=== PATIENT | male | born 1940 | race Caucasian/White ===

== ENCOUNTER 2017-04-18 10:16 | Inpatient (IN) | payer MEDICARE, OTHER ==
[2017-04-18] VITALS (7 sets, daily range): BP systolic 107–138; BP diastolic 54–68; PULSE 78–90; RESP 20; Ht 165.1 cm; Wt 69.5 kg
[~2017-04-18] VITALS: Ht 165.1 cm; Wt 69.5 kg
[2017-04-18] MEDS ORDERED: NITROGLYCERIN 2% 1 GM OINT PKT TD STA (10:17)
[2017-04-18] MEDS ORDERED: NITROGLYCERIN (SL) 0.4 MG TAB SL PRN (10:30)
[2017-04-18 10:48] LABS: ADD SCAN DIFF NO
[2017-04-18 10:50] LABS: BASOPHIL # 0.1 10^3/ul (0.0-0.1); BASOPHILS % 0.4 % (0.0-2.0); HEMATOCRIT 30.9 % (42.0-52.0); HEMOGLOBIN 10.2 g/dl (14.0-18.0); LYMPHOCYTES % 5.8 % (15.0-51.0); MEAN CORPUSCULAR HEMOGLOBIN 30.4 pg (29.0-33.0); MEAN PLATELET VOLUME 9.3 fl (7.4-10.4); MONOCYTE # 1.3 10^3/ul (0.3-0.9); MONOCYTES % 7.3 % (0.0-11.0); NEUTROPHIL # 14.8 10^3/ul (1.6-7.5); NEUTROPHILS % 85.8 % (39.0-77.0); PLATELET COUNT 474 10^3/UL (140-415); RED BLOOD COUNT 3.36 10^6/ul (4.70-6.10); RED CELL DISTRIBUTION WIDTH 14.5 % (11.5-14.5); WHITE BLOOD COUNT 17.3 10^3/ul (4.8-10.8)
--- NOTE | 2017-04-18 10:50 | RADRPT ---
PROCEDURE: Chest x-ray CLINICAL INDICATION: Chest pain TECHNIQUE: Chest single view COMPARISON: None FINDINGS: The heart is normal in size. The pulmonary vessels are normal in caliber. The lungs are clear. Th e costophrenic angles are sharp. The visualized bony thorax is unremarkable. IMPRESSION: No acute cardiopulmonary disease. Moderate atherosclerotic aortic calcification RPTAT: HH .Lexa Mendez MD, Date Time Electronically viewed and signed by .Lexa Mendez MD, MD on 04/18/2017 10:50 .W/
--- NOTE | 2017-04-18 11:05 | RADRPT ---
PROCEDURE: CT Abdomen and Pelvis without contrast. CLINICAL INDICATION: Abdominal pain and distension. TECHNIQUE: CT scan of the abdomen and pelvis without contrast was performed on a multidetector hig h-resolution CT scanner. The patient was scanned without intravenous contrast. Coronal and sagittal reformatted images were obtained from the axial source images. Images were reviewed on a high-resol [employer] PACS workstation. The total exam CTDI equals 18.53 mGy and the total exam DLP equals 1119.62 m Gy-cm. One or more of the following dose reduction techniques were used: Automated exposure control. Adjustment of the mA and/or kV according to patient size. Use of iterative reconstruction technique. COMPARISON: None FINDINGS: CT abdomen: The lung bases are clear. The heart size is normal, without pericardial thickening or effusion. Th e liver is normal in size and density without focal mass or intrahepatic biliary dilatation. The sp milagros is normal in size and homogeneous in density. The stomach is partially collapsed, but is gross ly unremarkable. The pancreas as visualized is normal. The gallbladder is remarkable for sub centi meter layering gallstones. There is no evidence for biliary dilatation. The adrenal glands are symm etric and normal. There is moderate bilateral hydroureteronephrosis likely related to marked distension of the urinary bladder. There is no obstructing ureteral stone. There is lobulated contour of the left kidney wi th focal scarring in the lower pole. There is a punctate parenchymal calcification in the upper clifford e. The aorta is of normal caliber. Aortic vascular calcifications are present. There is no retroperit canela lymphadenopathy. The maegan hepatis region is clear. The bowel and mesentery, as visualized, are equally unremarkable. CT pelvis: The urinary bladder is markedly distended measures up to 27 x 18 cm (craniocaudal x AP). The patient is status post prostatectomy. There is evidence of implanted artificial urinary sphincter device. The small bowel loops situated within the pelvis are unremarkable. The pelvic sidewalls and inguina l regions are clear. The sigmoid colon and rectum are unremarkable. No mass, lymphadenopathy, or f ree fluid is seen. No acute inflammation is seen. The surrounding osseous structures are remarkabl e for degenerative spondylosis of the spine. No osteolytic or osteoblastic lesion is detected. IMPRESSION: 1. Markedly distended urinary bladder measures up to 27 cm in craniocaudal length. 2. Moderate bilateral hydroureteronephrosis likely related to distended urinary bladder. Lobulated contour of both kidneys with cortical scarring more evident in the lower pole left kidney. 3. Implanted artificial urinary sphincter device in place. 4. Cholelithiasis without evidence of acute cholecystitis. 5. Aortoiliac atherosclerosis. RPTAT: BB .Jovanny Nieto MD, MD Date Time Electronically viewed and signed by .Jovanny Nieto MD, on 04/18/2017 11:05 .O/
[2017-04-18 11:14] LABS: CALCIUM 9.6 mg/dl (8.4-10.2); CREATININE 2.15 mg/dl (0.61-1.24); POTASSIUM 5.7 mmol/L (3.5-5.1)
[2017-04-18 11:19] LABS: INR 2.18; PARTIAL THROMBOPLASTIN TIME 50.8 Sec (25.0-35.0); PROTIME 24.5 Sec (12.2-14.2); PT RATIO 1.9
[2017-04-18 11:26] LABS: TROPONIN-I 0.036 ng/ml (0.00-0.12)
[2017-04-18] MEDS ORDERED: SODIUM CHLORIDE 0.9% 1L BAG IV* STA (11:53)
[2017-04-18] MEDS ORDERED: PIPER-TAZO 3.375 GM IV (PMX) 100 ML IVPB ONE (12:00)
[2017-04-18 12:19] LABS: ADD UMIC YES; UR ASCORBIC ACID NEGATIVE (NEGATIVE); UR BACTERIA MANY /HPF (NONE SEEN); UR BILIRUBIN (Dip) NEGATIVE (NEGATIVE); UR BLOOD (Dip) 2+ mg/dL (NEGATIVE); UR CLARITY TURBID (CLEAR); UR COLOR AMBER (YELLOW); UR GLUCOSE (Dip) NEGATIVE (NEGATIVE); UR KETONES (Dip) NEGATIVE (NEGATIVE); UR LEUKOCYTE ESTERASE (Dip) 3+ Leu/ul (NEGATIVE); UR MUCUS FEW /HPF (NONE SEEN); UR NITRITE (Dip) NEGATIVE (NEGATIVE); UR RBC 48 /HPF (0-5); UR SPECIFIC GRAVITY (Dip) 1.012 (1.003-1.030); UR TOTAL PROTEIN (Dip) 1+ mg/dl (NEGATIVE); UR UROBILINOGEN (Dip) NEGATIVE (NEGATIVE); UR WBC CLUMPS MANY /HPF (NONE SEEN)
[2017-04-18] MEDS ORDERED: ONDANSETRON 4 MG INJ IV PRN ×2 (12:30→17:00)
[2017-04-18] MEDS ORDERED: ACETAMINOPHEN 325 MG TAB PO PRN ×2 (12:30→17:00)
--- NOTE | 2017-04-18 13:34 | ERA ---
ER Documentation Chief Complaint Date/Time DATE: 04/18/17 TIME: 13:31 Chief Complaint chest pain x 1 hr prior to arrival, abdominal pain today HPI Patient is a 76-year-old male with hypertension, diabetes, and coronary disease who presents with chest pain and abdominal pain. He was brought in by ambulance. He had 10 out of 10 chest pain and was given 3 nitroglycerin and 160 mg of aspirin by paramedics. He describes as a midepigastric pain which radiates to his left chest. He came from a rehab facility. He is also complaining of abdominal pain and has abdominal distention. He did have a bowel movement done yesterday. ROS All systems reviewed and are negative except as per history of present illness. Allergies Allergies: Coded Allergies: vancomycin (Verified Allergy, Severe, 04/18/17) Uncoded Allergies: CHICKEN (Allergy, Intermediate, 04/18/17) PMhx/Soc History of Surgery: No Anesthesia Reaction: No Hx Neurological Disorder: No Hx Respiratory Disorders: Yes (COPD) Hx Cardiac Disorders: Yes (HEART FAILURE, CAD, HTN) Hx Psychiatric Problems: Yes (PSYCHOSIS ) Hx Miscellaneous Medical Probl: Yes (DM, ANEMIA,GERD, PERIPHERAL VASCULAR DISEASE, L PATELLA FX) Hx Alcohol Use: No Hx Substance Use: No Hx Tobacco Use: No Smoking Status: Former smoker FmHx Family History: diabetes Physical Exam Vitals Vital Signs Date Time Temp Pulse Resp B/P Pulse Ox O2 Delivery O2 Flow Rate FiO2 04/18/17 10:24 98.4 103 20 146/66 99 Physical Exam Const: Moderate distress secondary to pain Head: Atraumatic Eyes: Normal Conjunctiva ENT: Normal External Ears, Nose and Mouth. Neck: Full range of motion..~ No meningismus. Resp: Clear to auscultation bilaterally Cardio: Regular rate and rhythm, no murmurs Abd: Distended abdomen with diffuse tenderness to palpation without rebound or guarding Skin: No petechiae or rashes Back: No midline or flank tenderness Ext: No cyanosis, or edema Neur: Awake and alert Psych: Normal Mood and Affect Result Diagram: 04/18/17 1039 04/18/17 1039 Results 24 hrs Laboratory Tests Test 04/18/17 10:39 04/18/17 11:40 White Blood Count 17.310^3/ul Red Blood Count 3.3610^6/ul Hemoglobin 10.2g/dl Hematocrit 30.9% Mean Corpuscular Volume 92.0fl Mean Corpuscular Hemoglobin 30.4pg Mean Corpuscular Hemoglobin Concent 33.0g/dl Red Cell Distribution Width 14.5% Platelet Count 90466^3/UL Mean Platelet Volume 9.3fl Neutrophils % 85.8% Lymphocytes % 5.8% Monocytes % 7.3% Eosinophils % 0.0% Basophils % 0.4% Nucleated Red Blood Cells % 0.0/100WBC Neutrophils # 14.810^3/ul Lymphocytes # 1.010^3/ul Monocytes # 1.310^3/ul Eosinophils # 0.010^3/ul Basophils # 0.110^3/ul Nucleated Red Blood Cells # 0.010^3/ul Differential Comment AUTO w/SCAN Prothrombin Time 24.5Sec Prothrombin Time Ratio 1.9 INR International Normalized Ratio 2.18 Activated Partial Thromboplast Time 50.8Sec Sodium Level 133mmol/L Potassium Level 5.7mmol/L Chloride Level 93mmol/L Carbon Dioxide Level 22mmol/L Anion Gap 24 Blood Urea Nitrogen 44mg/dl Creatinine 2.15mg/dl Glucose Level 210mg/dl Lactic Acid Level 2.6mmol/L Calcium Level 9.6mg/dl Troponin I 0.036ng/ml Urine Color JESSE Urine Clarity TURBID Urine pH 5.0 Urine Specific [place] 1.012 Urine Ketones NEGATIVEmg/dL Urine Nitrite NEGATIVEmg/dL Urine Bilirubin NEGATIVEmg/dL Urine Urobilinogen NEGATIVEmg/dL Urine Leukocyte Esterase 3+Yoel/ul Urine Microscopic RBC 48/HPF Urine Microscopic WBC > 182/HPF Urine Bacteria MANY/HPF Urine Mucus FEW/HPF Urine Hemoglobin 2+mg/dL Urine Glucose NEGATIVEmg/dL Urine Total Protein 1+mg/dl Current Medications Medications (Trade) Dose Ordered Sig/Jia Route PRN Reason Start Time Stop Time Status Last Admin Dose Admin Nitroglycerin (Nitroglycerin 2% Oint) 1 inch ONCE STAT TD 04/18/17 10:17 04/18/17 10:18 DC 04/18/17 11:00 Nitroglycerin (Nitroglycerin (Sl Tab) 0.4 Mg) 1 tab Q5M UP TO 3 DOSES PRN SL CHEST PAIN 04/18/17 10:30 Sodium Chloride 2750 ml 2,750 ml BOLUS OVER 2 HOURS STAT IV* 04/18/17 11:53 04/18/17 11:55 DC 04/18/17 12:13 Piperacillin Sod/ Tazobactam Sod (Zosyn 3.375gm/ 100 ml (Pmx)) 100 ml @ 200 mls/hr ONCE ONCE IVPB 04/18/17 12:00 04/18/17 12:29 DC 04/18/17 12:13 Procedures/MDM CT scan shows distended bladder per radiology. Chest x-ray shows no pneumonia or pneumothorax per radiology. EKG read by me: Rate/Rhythm: Regular rate and rhythm at a normal rate Intervals: Normal Impression: No evidence of ischemia or arrhythmia Admit MDM: Patient's infectious symptoms have not stabilized and the patient is at risk of rapid decompensation. The patient will be admitted for careful hydration, antibiotic therapy, and infectious source control. Severe Sepsis criteria: Infectious source: Cystitis End organ damage indicated by: Lactate greater than 2, creatinine greater than 2 Sepsis Management: Time of recognition of sepsis: 10:39 Within 3 hours of recognition: Blood cultures x 2 before broad-spectrum antibiotics: [Yes] 30 ml/kg NS bolus [Completed] Initial lactate 2.6 Repeat lactate pending Time of recognition of septic shock: [No septic shock] Septic Shock Assessment: Any lactic acid > 4.0 [No] Persistent hypotension (SBP < 90 or 40 mmHg drop, MAP < 65) despite 30 mL/kg IV fluid bolus [No] Volume Re-assessment for Septic Shock (post 30 ml/kg bolus): No septic shock at this time Persistent Hypotension Treatment: Comfort care [No] Central line [Not Required] Vasopressor started [Not required] I considered further perfusion assessment with CVP measurement, SCVO2, bedside ultrasound volume assessment, passive leg raise, trial of further fluid bolus. And proceeded with [30 ml/kg fluid bolus of NSS, broad spectrum antibiotics, and admission.] Cha catheter need to be placed and there was 2900 mL of urine which was obtained. Accepting Care Team Current data and ongoing care discussed. Admitting Physician: Dr. Ruiz from the panel team Retail Store Manager(s): [None] Outstanding Data: Culture results and repeat lactic acid Critical Care: Critical care time [35] minutes excluding all billable procedures Emergent fluid management while maintaining close respiratory support. Provision of immediate and broad-spectrum antibiotic therapy. Simultaneous assessment for possible sources in order to direct targeted therapy. Consideration for invasive and chemical support to prevent cardiopulmonary collapse. Departure Diagnosis: Primary Impression: Severe sepsis Additional Impressions: Chest pain Qualified Code: R07.9 - Chest pain, unspecified type Cystitis Condition: Serious MADELAINE YOUNG MD Apr 18, 2017 13:33
[2017-04-18] MEDS ORDERED: PENDING SANTYL ORDER FOR WOUND CARE XX PRN (16:00)
[2017-04-18 16:11] LABS: CREATINE KINASE < 20 IU/L (23-200)
[2017-04-18 16:17] LABS: TROPONIN-I 0.026 ng/ml (0.00-0.12)
[2017-04-18 16:18] LABS: CK-MB 1.36 ng/ml (0.0-2.4)
--- NOTE | 2017-04-18 16:47 | HP ---
Date/Time of Note Date/Time of Note DATE: 04/18/17 TIME: 16:39 Assessment/Plan VTE Prophylaxis VTE Prophylaxis Intervention: SCD's Lines/Catheters IV [facility]from [facility] Saline [facility] Assessment/Plan Chief Complaint/Hosp Course 1. Abdominal pain likely secondary to urinary retention positive from neurogenic bladder Patient has history of implantable device in the testicle Consult urology 2. Left foot wound Consult wound care 3. Acute versus chronic kidney disease-baseline creatinine unknown etiology likely obstructive secondary to neurogenic bladder Nephrology consultation 4. History of polio with debility 5. Leukocytosis secondary to UTI from neurogenic bladder Rocephin IV Urine culture 6. Normocytic anemia likely secondary to anemia of chronic disease Prophylaxis: SCDs Problems: HPI/ROS Admit Date/Time Admit Date/Time Apr 18, 2017 at 12:21 Hx of Present Illness Patient is 76-year-old male with a history of polio, history of urinary issues with mechanical device to help him urinate, patient was born with 1 kidney. Patient appears to be mostly bedbound he states that he does get around with wheelchair and does occasionally ambulate with assistance. Patient states that he lives with his . Patient presents with chief complaint of pain in the foot but he told the ER doctor that he has chest pain. Patient denies any chest pain at this time he does report some suprapubic pain. Patient states that he needs to turn on the apparatus in his testicles to allow him to urinate but he has not done so today. Patient is unclear as to why this device was placed. Patient has no other complaints this time. ROS Constitutional: improved, no complaints Eyes: no complaints ENT: no complaints Respiratory: no complaints Cardiovascular: no complaints Gastrointestinal: pain Genitourinary: no complaints Musculoskeletal: bone/joint pain Skin: no complaints Neurologic: no complaints Endocrine: no complaints Lymphatic: no complaints Psychological: nl mood/affect, no complaints Immunologic: no complaints PMH/Family/Social Past Medical History Medical History: other (Polio and urinary retention) Past Surgical History History of bilateral knee replacement and hip replacement as well as mechanical device placed in testicles for urinary retention Past Surgical Hx: other Family History Significant Family History: no pertinent family hx Social History Alcohol Use: none Smoking Status: Current every day smoker Drug Use: none Exam/Review of Systems Vital Signs Vitals Vital Signs Date Time Temp Pulse Resp B/P Pulse Ox O2 Delivery O2 Flow Rate FiO2 7/5/17 16:12 83 04/18/17 15:58 97.7 20 116/62 96 04/18/17 14:00 Nasal Cannula 1.0 Exam Constitutional: alert Head: normocephalic Respiratory: clear to auscultation Cardiovascular: regular rate and rhythm Gastrointestinal: non-tender, soft, No distended Musculoskeletal: No nl extremities to inspection Labs Result Diagram: 04/18/17 1039 04/18/17 1039 Medications Medications Current Medications Miscellaneous Information (Pending [facility] Order For Wound Care) This patient caro... PRN PRN XX WOUND CARE; Start 04/18/17 at 16:00 BANDAR RUTHERFORD Apr 18, 2017 16:47
[2017-04-18] MEDS ORDERED: DOCUSATE SODIUM 100 MG CAP PO PRN (17:00)
[2017-04-18] MEDS ORDERED: NACL 0.9% 3 ML SYG IV SCH (17:00)
[2017-04-18] MEDS ORDERED: ZOLPIDEM 5 MG TAB PO PRN (17:00)
[2017-04-18] MEDS ORDERED: CEFTRIAXONE 1 GM/50 ML (PMX) 50 ML IVPB SCH (17:00)
--- NOTE | 2017-04-18 19:23 | CONS ---
Date/Time of Note Date/Time of Note DATE: 04/18/17 TIME: 19:03 Assessment/Plan Assessment/Plan Chief Complaint/Hosp Course Urinary retention secondary to the fact that the patient has not deflated the cuff of the artificial sphincter for many days causing him to go into urinary retention. The tells me that he usually have to sit on the toilet to be able to do that he cannot do it laying down or urinate in the urinal. Recommendation at the present time would be to keep the Cha catheter in place and once he is stable we will remove the catheter and have him resume using his artificial sphincter and have him sit on the bedside commode to be able to deflate the cuff so he could urinate Problems: Consultation Date/Type/Reason Admit Date/Time Apr 18, 2017 at 12:21 Date of Consultation: Apr 18, 2017 Reason for Consultation Urinary retention Referring Provider: BANDAR RUTHERFORD Hx of Present Illness 76-year-old male presented to the emergency room with abdominal pain ,chest pain ,was found to have urinary retention. Subjective hx not possible: other (Patient stated that he is comfortable at the present time and has no pain) Constitutional: improved, no complaints, No chills, No diaphoresis, No disoriented, No febrile, No other, No poor po, No requiring IVF, No requiring O2 Eyes: no complaints ENT: no complaints Respiratory: no complaints, other (Patient did have a pulmonary embolism when he was at [facility] last month) Cardiovascular: no complaints, other Gastrointestinal: other (Loose bowel movement), pain Genitourinary: no complaints, other (Urinary retention) Musculoskeletal: bone/joint pain Skin: no complaints, skin lesions Neurologic: no complaints Endocrine: no complaints Lymphatic: no complaints Psychological: nl mood/affect, no complaints Immunologic: no complaints Past Medical History Medical History: other (Polio and urinary retention, history of pulmonary embolism and nose bleed because of low platelet count) Past Surgical History Past Surgical Hx: other (History of artificial urinary sphincter placed about 20 years ago. Patient still have mild urinary incontinence) Family History Significant Family History: no pertinent family hx Social History Alcohol Use: none Smoking Status: Current every day smoker Drug Use: none Other Social History Patient lives at home with his however he was recently admitted to [facility] by Dr. colby to undergo surgery on his knee which he did then he was transferred to [facility] for rehabilitation and while he was there the had the pulmonary embolism and the nose bleed Exam/Review of Systems Vital Signs Vitals Vital Signs Date Time Temp Pulse Resp B/P Pulse Ox O2 Delivery O2 Flow Rate FiO2 04/18/17 16:12 83 04/18/17 15:58 97.7 20 116/62 96 04/18/17 14:00 Nasal Cannula 1.0 Exam Constitutional: alert Psych: no complaints Head: normocephalic Eyes: nl conjunctiva ENMT: nl external ears & nose Neck: supple Respiratory: clear to auscultation, normal air movement Cardiovascular: nl pulses, regular rate and rhythm Gastrointestinal: nl liver, spleen, non-tender, soft Genitourinary - Male: other (Patient has the indwelling Cha catheter now draining clear urine. The pump for the artificial sphincter is in the right scrotal area. Rectal examination: Prostate is not large and it is soft) Musculoskeletal: other (Patient has cellulitis of the lower extremities) Skin: nl turgor Results Result Diagram: 04/18/17 1039 04/18/17 1039 Results 24 hrs Laboratory Tests Test 04/18/17 10:39 04/18/17 11:40 04/18/17 12:00 04/18/17 15:30 White Blood Count 17.3 H Red Blood Count 3.36 L Hemoglobin 10.2 L Hematocrit 30.9 L Mean Corpuscular Volume 92.0 Mean Corpuscular Hemoglobin 30.4 Mean Corpuscular Hemoglobin Concent 33.0 Red Cell Distribution Width 14.5 Platelet Count 474 H Mean Platelet Volume 9.3 Neutrophils % 85.8 H Lymphocytes % 5.8 L Monocytes % 7.3 Eosinophils % 0.0 Basophils % 0.4 Nucleated Red Blood Cells % 0.0 Neutrophils # 14.8 H Lymphocytes # 1.0 Monocytes # 1.3 H Eosinophils # 0.0 Basophils # 0.1 Nucleated Red Blood Cells # 0.0 Differential Comment AUTO w/SCAN Prothrombin Time 24.5 H Prothrombin Time Ratio 1.9 INR International Normalized Ratio 2.18 Activated Partial Thromboplast Time 50.8 H Sodium Level 133 L Potassium Level 5.7 H Chloride Level 93 L Carbon Dioxide Level 22 Anion Gap 24 H Blood Urea Nitrogen 44 H Creatinine 2.15 H Glucose Level 210 Lactic Acid Level 2.6 H 1.6 1.7 Calcium Level 9.6 Troponin I 0.036 0.026 Urine Color JESSE Urine Clarity TURBID A Urine pH 5.0 Urine Specific [place] 1.012 Urine Ketones NEGATIVE Urine Nitrite NEGATIVE Urine Bilirubin NEGATIVE Urine Urobilinogen NEGATIVE Urine Leukocyte Esterase 3+ H Urine Microscopic RBC 48 H Urine Microscopic WBC > 182 H Urine Bacteria MANY A Urine Mucus FEW A Urine Hemoglobin 2+ H Urine Glucose NEGATIVE Urine Total Protein 1+ H Creatine Kinase < 20 L Creatine Kinase Index Creatinine Kinase MB (Mass) 1.36 Medications Medications Current Medications Miscellaneous Information (Pending [facility] Order For Wound Care) This patient caro... PRN PRN XX WOUND CARE; Start 04/18/17 at 16:00 Ondansetron HCl (Zofran Inj) 4 mg Q6H PRN IV NAUSEA AND/OR VOMITING; Start 04/18 at 17:00 Acetaminophen (Tylenol Tab) 650 mg Q6H PRN PO PAIN LEVEL 1-3 OR FEVER; Start at 17:00 Acetaminophen/ Hydrocodone Bitart ([place] (5/325)) 1 tab Q6H PRN PO MODERATE PAIN LEVEL 4-6; Start 04/18/17 at 17:00 Morphine Sulfate (morphine) 2 mg Q4H PRN IV SEVERE PAIN LEVEL 7-10; Start at 17:00 Docusate Sodium (Colace) 100 mg Q12H PRN PO CONSTIPATION; Start 04/18/17 at 17: 00 Zolpidem Tartrate 5 mg 5 mg QHS PRN PO SLEEP; Start 04/18/17 at 17:00 Ceftriaxone Sodium (Rocephin) 50 ml @ 100 mls/hr Q24H IVPB ; Start 04/18/17 at 18:30 FADI ALCALA MD Apr 18, 2017 19:14
--- NOTE | 2017-04-18 20:04 | CONS ---
Date/Time of Note Date/Time of Note DATE: 04/18/17 TIME: 19:49 Assessment/Plan Assessment/Plan Chief Complaint/Hosp Course Impression: 1. Acute renal failure due to obstructive uropathy. The patient's urinary bladder was massively distended. It is not clear how long the patient has had an obstructed urethra due to an artificial sphincter which has not been used. The patient gives a history of having only one functioning kidney; although, he does show bilateral hydronephrosis on CAT scan done this morning which would be more consistent with 2 functioning kidneys. The patient has had more than 5 L of fluid drained from his urinary bladder. I would expect his renal function to improve. Will have to monitor renal function and urine output as the patient may develop a postobstructive diuresis. 2. Hyperkalemia secondary to number 1 . This should correct with relief of his obstructive uropathy. 3. Anemia 4. History of polio 5. Leukocytosis. Plan: 1. Start IV fluids in anticipation of postobstructive diuresis 2. Monitor daily renal function, electrolytes. 3. I will follow patient along with you. Problems: Consultation Date/Type/Reason Admit Date/Time Apr 18, 2017 at 12:21 Date of Consultation: Apr 18, 2017 Type of Consultation: Renal Reason for Consultation renal failure Referring Provider: BANDAR RUTHERFORD of Present Illness This is a 76-year-old man who I was asked to see because of renal failure. The patient is a poor historian. According to the chart and according to history I was able to obtain from other doctors the patient was admitted to the hospital this morning. He had been transferred by paramedics from [facility] to the emergency room. The patient was admitted because of chest pain. In the emergency room the patient was found to have a markedly distended urinary bladder with bilateral hydronephrosis. The patient is now feeling well after having a urinary catheter placed in the emergency room and at least 5 L were drained from his urinary bladder. It is suspected that the patient had chest pain from the urinary bladder pressing up on his diaphragm. The patient gives a history of only having one functioning kidney; however, on the CAT scan done today he does have what looks like to functioning kidneys. 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 The reason for its placement is not entirely clear. The patient was able to operate the artificial urinary sphincter by deflating a cough around his urethra. The patient however while at the skilled nursing was not doing the deflation of the cuff and developed the distended urinary bladder because he was not urinating. Constitutional: improved, no complaints, No chills, No diaphoresis, No disoriented, No febrile, No other, No poor po, No requiring IVF, No requiring O2 Eyes: no complaints ENT: no complaints Respiratory: no complaints, other (Patient did have a pulmonary embolism when he was at [facility] last month) Cardiovascular: no complaints, other Gastrointestinal: other (Loose bowel movement), pain Genitourinary: no complaints, other (Urinary retention) Musculoskeletal: bone/joint pain Skin: no complaints, skin lesions Neurologic: confusion Endocrine: no complaints Lymphatic: no complaints Psychological: no complaints Immunologic: no complaints Past Medical History Medical History: other (Polio and urinary retention, history of pulmonary embolism and nose bleed because of low platelet count) Past Surgical History The patient does have a history of polio. He also has a history of falling several times" fracturing his knees" and required bilateral total knee replacement. There is also a history of having blood clots in the lungs. The patient was on blood thinners but is not on blood thinners now. Some of this history was taken from the patient's . The patient is not clear on these details and he prefers to talking to his about this. Past Surgical Hx: other (History of artificial urinary sphincter placed about 20 years ago. Patient still have mild urinary incontinence) Family History Significant Family History: no pertinent family hx Social History Alcohol Use: none Smoking Status: Current every day smoker Drug Use: none Exam/Review of Systems Vital Signs Vitals Vital Signs Date Time Temp Pulse Resp B/P Pulse Ox O2 Delivery O2 Flow Rate FiO2 04/18/17 16:12 83 04/18/17 15:58 97.7 20 116/62 96 04/18/17 14:00 Nasal Cannula 1.0 Exam Constitutional: alert, frail Psych: confusion Head: normocephalic Eyes: EOMI Neck: supple Respiratory: clear to auscultation, diminished breath sounds Cardiovascular: regular rate and rhythm Gastrointestinal: non-tender, soft Musculoskeletal: nl extremities to inspection Neurological: focal weakness Results Result Diagram: 04/18/17 1039 04/18/17 1039 Results 24 hrs Laboratory Tests Test 04/18/17 10:39 04/18/17 11:40 04/18/17 12:00 04/18/17 15:30 White Blood Count 17.3 H Red Blood Count 3.36 L Hemoglobin 10.2 L Hematocrit 30.9 L Mean Corpuscular Volume 92.0 Mean Corpuscular Hemoglobin 30.4 Mean Corpuscular Hemoglobin Concent 33.0 Red Cell Distribution Width 14.5 Platelet Count 474 H Mean Platelet Volume 9.3 Neutrophils % 85.8 H Lymphocytes % 5.8 L Monocytes % 7.3 Eosinophils % 0.0 Basophils % 0.4 Nucleated Red Blood Cells % 0.0 Neutrophils # 14.8 H Lymphocytes # 1.0 Monocytes # 1.3 H Eosinophils # 0.0 Basophils # 0.1 Nucleated Red Blood Cells # 0.0 Differential Comment AUTO w/SCAN Prothrombin Time 24.5 H Prothrombin Time Ratio 1.9 INR International Normalized Ratio 2.18 Activated Partial Thromboplast Time 50.8 H Sodium Level 133 L Potassium Level 5.7 H Chloride Level 93 L Carbon Dioxide Level 22 Anion Gap 24 H Blood Urea Nitrogen 44 H Creatinine 2.15 H Glucose Level 210 Lactic Acid Level 2.6 H 1.6 1.7 Calcium Level 9.6 Troponin I 0.036 0.026 Urine Color JESSE Urine Clarity TURBID A Urine pH 5.0 Urine Specific Barry 1.012 Urine Ketones NEGATIVE Urine Nitrite NEGATIVE Urine Bilirubin NEGATIVE Urine Urobilinogen NEGATIVE Urine Leukocyte Esterase 3+ H Urine Microscopic RBC 48 H Urine Microscopic WBC > 182 H Urine Bacteria MANY A Urine Mucus FEW A Urine Hemoglobin 2+ H Urine Glucose NEGATIVE Urine Total Protein 1+ H Creatine Kinase < 20 L Creatine Kinase Index Creatinine Kinase MB (Mass) 1.36 Medications Medications Current Medications Miscellaneous Information (Pending Santyl Order For Wound Care) This patient caro... PRN PRN XX WOUND CARE; Start 04/18/17 at 16:00 Ondansetron HCl (Zofran Inj) 4 mg Q6H PRN IV NAUSEA AND/OR VOMITING; Start 04/18 at 17:00 Acetaminophen (Tylenol Tab) 650 mg Q6H PRN PO PAIN LEVEL 1-3 OR FEVER; Start at 17:00 Acetaminophen/ Hydrocodone Bitart ([place] (5/325)) 1 tab Q6H PRN PO MODERATE PAIN LEVEL 4-6; Start 04/18/17 at 17:00 Morphine Sulfate (morphine) 2 mg Q4H PRN IV SEVERE PAIN LEVEL 7-10; Start at 17:00 Docusate Sodium (Colace) 100 mg Q12H PRN PO CONSTIPATION; Start 04/18/17 at 17: 00 Zolpidem Tartrate 5 mg 5 mg QHS PRN PO SLEEP; Start 04/18/17 at 17:00 Ceftriaxone Sodium (Rocephin) 50 ml @ 100 mls/hr Q24H IVPB ; Start 04/18/17 at 18:30 TAO BOLTON MD Apr 18, 2017 20:02
[2017-04-18] MEDS: SOD CHLORIDE 0.9% 1,000 ML IV SCH (21:11)
[2017-04-18] MEDS: CEFTRIAXONE 1 GM/50 ML (PMX) 50 ML IVPB SCH (21:17)
[2017-04-18] MEDS: morphine 2 MG INJ IV PRN (21:20)
[2017-04-18 23:30] LABS: CREATINE KINASE < 20 IU/L (23-200)
[2017-04-18 23:40] LABS: CK-MB 1.47 ng/ml (0.0-2.4)
[2017-04-19] VITALS (12 sets, daily range): BP systolic 140–167; BP diastolic 65–79; PULSE 87–104; RESP 16–20
[2017-04-19] MEDS: SOD CHLORIDE 0.9% 1,000 ML IV SCH ×3 (04:30→20:30)
[2017-04-19 06:54] LABS: ADD SCAN DIFF NO
[2017-04-19 07:01] LABS: BASOPHILS % 0.4 % (0.0-2.0); EOSINOPHILS # 0.1 10^3/ul (0.0-0.5); EOSINOPHILS % 0.6 % (0.0-7.0); HEMATOCRIT 25.7 % (42.0-52.0); HEMOGLOBIN 8.2 g/dl (14.0-18.0); LYMPHOCYTES # 0.8 10^3/ul (0.8-2.9); LYMPHOCYTES % 9.7 % (15.0-51.0); MEAN CORPUSCULAR HEMOGLOBIN 29.8 pg (29.0-33.0); MEAN CORPUSCULAR HGB CONC 31.9 g/dl (32.0-37.0); MEAN CORPUSCULAR VOLUME 93.5 fl (82.0-101.0); MEAN PLATELET VOLUME 9.5 fl (7.4-10.4); MONOCYTE # 0.6 10^3/ul (0.3-0.9); MONOCYTES % 7.3 % (0.0-11.0); NEUTROPHIL # 6.8 10^3/ul (1.6-7.5); NEUTROPHILS % 81.3 % (39.0-77.0); PLATELET COUNT 354 10^3/UL (140-415); RED BLOOD COUNT 2.75 10^6/ul (4.70-6.10); RED CELL DISTRIBUTION WIDTH 14.7 % (11.5-14.5); WHITE BLOOD COUNT 8.3 10^3/ul (4.8-10.8)
[2017-04-19 07:24] LABS: CALCIUM 8.3 mg/dl (8.4-10.2); CREATININE 1.24 mg/dl (0.61-1.24); MAGNESIUM 1.5 mg/dl (1.7-2.5); PHOSPHORUS 4.3 mg/dl (2.5-4.9); POTASSIUM 3.9 mmol/L (3.5-5.1)
[2017-04-19] MEDS: HYDROCODONE/APAP (5/325) TAB PO PRN ×2 (07:47→13:44)
--- NOTE | 2017-04-19 08:46 | PN ---
Date/Time of Note Date/Time of Note DATE: 04/19/17 TIME: 08:39 Assessment/Plan VTE Prophylaxis VTE Prophylaxis Intervention: SCD's Lines/Catheters IV Catheter Type (from Rust): Saline Lock Urinary Cath still in place: Yes Reason Cath still needed: urinary retention Assessment/Plan Chief Complaint/Hosp Course Urinary retention secondary to the fact that the patient has not deflated the cuff of the artificial sphincter for many days causing him to go into urinary retention. The tells me that he usually have to sit on the toilet to be able to do that he cannot do it laying down or urinate in the urinal. Recommendation at the present time would be to keep the Cha catheter in place and once he is stable we will remove the catheter and have him resume using his artificial sphincter and have him sit on the bedside commode to be able to deflate the cuff so he could urinate Problems: Assessment/Plan We will keep the Cha catheter in for today. We'lll DC the Cha catheter tomorrow morning and reactivate his artificial urinary sphincter and have him resume using it and maybe use a bedside commode to help him urinate easier as he has been doing at home he has difficulty trying to urinate when he is in bed Subjective 24 Hr Interval Summary Free Text/Dictation Patient stated that he is better and had a good night sleep he denies any pain Constitutional: improved Eyes: no complaints ENT: no complaints Respiratory: no complaints Cardiovascular: no complaints Gastrointestinal: no complaints Genitourinary: other (Patient has an indwelling Cha catheter. He states he usually use a diaper at night for many years even though he has a sphincter because that was not completely controlling his urine) Musculoskeletal: bone/joint pain Skin: no complaints Neurologic: no complaints Endocrine: no complaints Exam/Review of Systems Vital Signs Vitals Vital Signs Date Time Temp Pulse Resp B/P Pulse Ox O2 Delivery O2 Flow Rate FiO2 04/19/17 08:08 97.6 88 18 160/75 99 04/18/17 19:00 Nasal Cannula 1.0 Intake and Output 04/18/17 04/18/17 04/19/17 15:00 23:00 07:00 Intake Total 200 ml 1800 ml Output Total 4500 ml 1250 ml 1200 ml Balance -4500 ml -1050 ml 600 ml Exam Constitutional: alert, oriented Psych: no complaints Head: normocephalic Eyes: nl conjunctiva ENMT: nl external ears & nose Neck: supple Respiratory: normal air movement Gastrointestinal: soft Genitourinary - Male: other (Patient has artificial urinary sphincter) Extremities: edema, No calf tenderness, No clubbing, No cyanosis, No normal pulses, No other, No palpable cord, No pitting pedal edema, No tenderness Results Result Diagram: 04/19/17 0625 04/19/17 0625 Results 24 hrs Laboratory Tests Test 04/18/17 10:39 04/18/17 11:40 04/18/17 12:00 04/18/17 15:30 White Blood Count 17.3 H Red Blood Count 3.36 L Hemoglobin 10.2 L Hematocrit 30.9 L Mean Corpuscular Volume 92.0 Mean Corpuscular Hemoglobin 30.4 Mean Corpuscular Hemoglobin Concent 33.0 Red Cell Distribution Width 14.5 Platelet Count 474 H Mean Platelet Volume 9.3 Neutrophils % 85.8 H Lymphocytes % 5.8 L Monocytes % 7.3 Eosinophils % 0.0 Basophils % 0.4 Nucleated Red Blood Cells % 0.0 Neutrophils # 14.8 H Lymphocytes # 1.0 Monocytes # 1.3 H Eosinophils # 0.0 Basophils # 0.1 Nucleated Red Blood Cells # 0.0 Differential Comment AUTO w/SCAN Prothrombin Time 24.5 H Prothrombin Time Ratio 1.9 INR International Normalized Ratio 2.18 Activated Partial Thromboplast Time 50.8 H Sodium Level 133 L Potassium Level 5.7 H Chloride Level 93 L Carbon Dioxide Level 22 Anion Gap 24 H Blood Urea Nitrogen 44 H Creatinine 2.15 H Glucose Level 210 Lactic Acid Level 2.6 H 1.6 1.7 Calcium Level 9.6 Troponin I 0.036 0.026 Urine Color JESSE Urine Clarity TURBID A Urine pH 5.0 Urine Specific [place] 1.012 Urine Ketones NEGATIVE Urine Nitrite NEGATIVE Urine Bilirubin NEGATIVE Urine Urobilinogen NEGATIVE Urine Leukocyte Esterase 3+ H Urine Microscopic RBC 48 H Urine Microscopic WBC > 182 H Urine Bacteria MANY A Urine Mucus FEW A Urine Hemoglobin 2+ H Urine Glucose NEGATIVE Urine Total Protein 1+ H Creatine Kinase < 20 L Creatine Kinase Index Creatinine Kinase MB (Mass) 1.36 Test 04/18/17 22:30 04/19/17 06:25 Creatine Kinase < 20 L Creatine Kinase Index Creatinine Kinase MB (Mass) 1.47 Troponin I 0.040 White Blood Count 8.3 # Red Blood Count 2.75 L Hemoglobin 8.2 L Hematocrit 25.7 L Mean Corpuscular Volume 93.5 Mean Corpuscular Hemoglobin 29.8 Mean Corpuscular Hemoglobin Concent 31.9 L Red Cell Distribution Width 14.7 H Platelet Count 354 # Mean Platelet Volume 9.5 Neutrophils % 81.3 H Lymphocytes % 9.7 L Monocytes % 7.3 Eosinophils % 0.6 Basophils % 0.4 Nucleated Red Blood Cells % 0.0 Neutrophils # 6.8 Lymphocytes # 0.8 Monocytes # 0.6 Eosinophils # 0.1 Basophils # 0.0 Nucleated Red Blood Cells # 0.0 Sodium Level 137 Potassium Level 3.9 Chloride Level 106 # Carbon Dioxide Level 25 Anion Gap 10 # Blood Urea Nitrogen 30 #H Creatinine 1.24 Glucose Level 122 # Hemoglobin A1c 6.5 H Calcium Level 8.3 L Phosphorus Level 4.3 Magnesium Level 1.5 L Medications Medications Current Medications Miscellaneous Information ([facility] This patient caro... PRN PRN XX WOUND CARE; Start 04/18/17 at 16:00 Ondansetron HCl (Zofran Inj) 4 mg Q6H PRN IV NAUSEA AND/OR VOMITING; Start 04/18 at 17:00 Acetaminophen (Tylenol Tab) 650 mg Q6H PRN PO PAIN LEVEL 1-3 OR FEVER; Start at 17:00 Acetaminophen/ Hydrocodone Bitart ([place] (5/325)) 1 tab Q6H PRN PO MODERATE PAIN LEVEL 4-6 Last administered on 04/19/17 07:47; Admin Dose 1 TAB; Start 04/18 at 17:00 Morphine Sulfate (morphine) 2 mg Q4H PRN IV SEVERE PAIN LEVEL 7-10 Last administered on 04/18/17 21:20; Admin Dose 2 MG; Start 04/18/17 at 17:00 Docusate Sodium (Colace) 100 mg Q12H PRN PO CONSTIPATION; Start 04/18/17 at 17: 00 Zolpidem Tartrate 5 mg 5 mg QHS PRN PO SLEEP; Start 04/18/17 at 17:00 Ceftriaxone Sodium 50 ml @ 100 mls/hr Q24H IVPB Last administered on 04/18/17 21:17; Admin Dose 100 MLS/HR; Start 04/18/17 at 18:30 Sodium Chloride (NS) 1,000 ml @ 125 mls/hr Q8H IV Last administered on t 04:30; Admin Dose 125 MLS/HR; Start 04/18/17 at 20:30 FADI ALCALA MD Apr 19, 2017 08:46
[2017-04-19] MEDS: morphine 2 MG INJ IV PRN (14:14)
[2017-04-19] MEDS ORDERED: MAGNESIUM SULFATE 4 GM/100 ML 100 ML IVPB ONE (17:00)
--- NOTE | 2017-04-19 18:30 | PN ---
Date/Time of Note Date/Time of Note DATE: 04/19/17 TIME: 18:27 Assessment/Plan VTE Prophylaxis VTE Prophylaxis Intervention: SCD's Lines/Catheters IV Catheter Type (from Nrs): Saline Lock Assessment/Plan Chief Complaint/Hosp Course 1. Abdominal pain secondary to urinary retention from neurogenic bladder- improved with Cha catheter insertion Patient has history of implantable device in the testicle patient was not using the apparatus because he is unable to sit on toilet which is required to do in order to operate it Neurology consultation appreciated, Cha catheter inserted and plan is to remove Cha catheter tomorrow and have patient sit on toilet and urinated on his own 2. Left foot wound Wound care consult 3. Acute kidney injury secondary to obstruction from neurogenic bladder- resolved status post Cha placement Nephrology consultation appreciated 4. History of polio with debility 5. Leukocytosis secondary to UTI from neurogenic bladder-resolved Continue Rocephin IV Urine culture shows gram-negative rods 6. Normocytic anemia likely secondary to anemia of chronic disease Prophylaxis: SCDs Discharge planning: Anticipate DC in 1-2 days once patient can urinate on his own Problems: Subjective 24 Hr Interval Summary Constitutional: no complaints Exam/Review of Systems Vital Signs Vitals Vital Signs Date Time Temp Pulse Resp B/P Pulse Ox O2 Delivery O2 Flow Rate FiO2 04/19/17 16:10 97.8 90 16 166/74 98 04/18/17 19:00 Nasal Cannula 1.0 Intake and Output 04/18/17 04/18/17 04/19/17 15:00 23:00 07:00 Intake Total 200 ml 1800 ml Output Total 4500 ml 1250 ml 1200 ml Balance -4500 ml -1050 ml 600 ml Exam Constitutional: alert Respiratory: clear to auscultation Cardiovascular: regular rate and rhythm Gastrointestinal: soft, No distended Musculoskeletal: No nl extremities to inspection Results Result Diagram: 04/19/17 0625 04/19/17 0625 Results 24 hrs Laboratory Tests Test 04/18/17 22:30 04/19/17 06:25 Creatine Kinase < 20 L Creatine Kinase Index Creatinine Kinase MB (Mass) 1.47 Troponin I 0.040 White Blood Count 8.3 # Red Blood Count 2.75 L Hemoglobin 8.2 L Hematocrit 25.7 L Mean Corpuscular Volume 93.5 Mean Corpuscular Hemoglobin 29.8 Mean Corpuscular Hemoglobin Concent 31.9 L Red Cell Distribution Width 14.7 H Platelet Count 354 # Mean Platelet Volume 9.5 Neutrophils % 81.3 H Lymphocytes % 9.7 L Monocytes % 7.3 Eosinophils % 0.6 Basophils % 0.4 Nucleated Red Blood Cells % 0.0 Neutrophils # 6.8 Lymphocytes # 0.8 Monocytes # 0.6 Eosinophils # 0.1 Basophils # 0.0 Nucleated Red Blood Cells # 0.0 Sodium Level 137 Potassium Level 3.9 Chloride Level 106 # Carbon Dioxide Level 25 Anion Gap 10 # Blood Urea Nitrogen 30 #H Creatinine 1.24 Glucose Level 122 # Hemoglobin A1c 6.5 H Calcium Level 8.3 L Phosphorus Level 4.3 Magnesium Level 1.5 L Medications Medications Current Medications Miscellaneous Information ([facility] This patient caro... PRN PRN XX WOUND CARE; Start 04/18/17 at 16:00 Ondansetron HCl (Zofran Inj) 4 mg Q6H PRN IV NAUSEA AND/OR VOMITING; Start 04/18 at 17:00 Acetaminophen (Tylenol Tab) 650 mg Q6H PRN PO PAIN LEVEL 1-3 OR FEVER; Start at 17:00 Acetaminophen/ Hydrocodone Bitart ([place] (5/325)) 1 tab Q6H PRN PO MODERATE PAIN LEVEL 4-6 Last administered on 04/19/17 13:44; Admin Dose 1 TAB; Start 04/18 at 17:00 Morphine Sulfate (morphine) 2 mg Q4H PRN IV SEVERE PAIN LEVEL 7-10 Last administered on 04/19/17 14:14; Admin Dose 2 MG; Start 04/18/17 at 17:00 Docusate Sodium (Colace) 100 mg Q12H PRN PO CONSTIPATION; Start 04/18/17 at 17: 00 Zolpidem Tartrate 5 mg 5 mg QHS PRN PO SLEEP; Start 04/18/17 at 17:00 Ceftriaxone Sodium 50 ml @ 100 mls/hr Q24H IVPB Last administered on 04/18/17 21:17; Admin Dose 100 MLS/HR; Start 04/18/17 at 18:30 Sodium Chloride 1,000 ml @ 125 mls/hr Q8H IV Last administered on 04/19/17 04: 30; Admin Dose 125 MLS/HR; Start 04/18/17 at 20:30 Magnesium Sulfate (Magnesium Sulfate 4 Gm/100 ml) 100 ml @ 25 mls/hr ONCE ONCE IVPB Last administered on 04/19/17t 16:46; Admin Dose 25 MLS/HR; Start 04/19 at 17:00; Stop 04/19/17 at 20:59 BANDAR RUTHERFORD Apr 19, 2017 18:30
--- NOTE | 2017-04-19 18:57 | CONS ---
Date/Time of Note Date/Time of Note DATE: 04/19/17 TIME: 18:43 Assessment/Plan Assessment/Plan Chief Complaint/Hosp Course Impression: 1. Acute renal failure due to obstructive uropathy. His renal function is improving . Continue to monitor renal function and urine output as the patient may develop a postobstructive diuresis. 2. Hyperkalemia , this has corrected 3. Anemia , his H/H has dropped from yesterday 4. History of polio 5. Leukocytosis , improved 6. UTI 7. HTN Plan: 1. Continue IV fluids in anticipation of postobstructive diuresis 2. Monitor daily renal function, electrolytes. 3. Add iron studies and stool for OB . 4. clonidine prn elevated BP . Problems: Consultation Date/Type/Reason Admit Date/Time Apr 18, 2017 at 12:21 Initial Consult Date 04/18/17 Type of Consultation: Renal Referring Provider: BANDAR RUTHERFORD 24 HR Interval Summary Free Text/Dictation He is sitting up in his bed and is feeling better . Constitutional: improved, no complaints Exam/Review of Systems Vital Signs Vitals Vital Signs Date Time Temp Pulse Resp B/P Pulse Ox O2 Delivery O2 Flow Rate FiO2 04/19/17 16:10 97.8 90 16 166/74 98 04/18/17 19:00 Nasal Cannula 1.0 Intake and Output 04/18/17 04/18/17 04/19/17 15:00 23:00 07:00 Intake Total 200 ml 1800 ml Output Total 4500 ml 1250 ml 1200 ml Balance -4500 ml -1050 ml 600 ml Exam Constitutional: alert Psych: confusion Respiratory: clear to auscultation, normal air movement Cardiovascular: edema, regular rate and rhythm Gastrointestinal: non-tender, soft Extremities: edema Results Result Diagram: 04/19/17 0625 04/19/17 0625 Results 24 hrs Laboratory Tests Test 04/18/17 22:30 04/19/17 06:25 Creatine Kinase < 20 L Creatine Kinase Index Creatinine Kinase MB (Mass) 1.47 Troponin I 0.040 White Blood Count 8.3 # Red Blood Count 2.75 L Hemoglobin 8.2 L Hematocrit 25.7 L Mean Corpuscular Volume 93.5 Mean Corpuscular Hemoglobin 29.8 Mean Corpuscular Hemoglobin Concent 31.9 L Red Cell Distribution Width 14.7 H Platelet Count 354 # Mean Platelet Volume 9.5 Neutrophils % 81.3 H Lymphocytes % 9.7 L Monocytes % 7.3 Eosinophils % 0.6 Basophils % 0.4 Nucleated Red Blood Cells % 0.0 Neutrophils # 6.8 Lymphocytes # 0.8 Monocytes # 0.6 Eosinophils # 0.1 Basophils # 0.0 Nucleated Red Blood Cells # 0.0 Sodium Level 137 Potassium Level 3.9 Chloride Level 106 # Carbon Dioxide Level 25 Anion Gap 10 # Blood Urea Nitrogen 30 #H Creatinine 1.24 Glucose Level 122 # Hemoglobin A1c 6.5 H Calcium Level 8.3 L Phosphorus Level 4.3 Magnesium Level 1.5 L Medications Medications Current Medications Miscellaneous Information (Pending Santyl Order For Wound Care) This patient caro... PRN PRN XX WOUND CARE; Start 04/18/17 at 16:00 Ondansetron HCl (Zofran Inj) 4 mg Q6H PRN IV NAUSEA AND/OR VOMITING; Start 04/18 at 17:00 Acetaminophen (Tylenol Tab) 650 mg Q6H PRN PO PAIN LEVEL 1-3 OR FEVER; Start at 17:00 Acetaminophen/ Hydrocodone Bitart ([place] (5/325)) 1 tab Q6H PRN PO MODERATE PAIN LEVEL 4-6 Last administered on 04/19/17 13:44; Admin Dose 1 TAB; Start 04/18 at 17:00 Morphine Sulfate (morphine) 2 mg Q4H PRN IV SEVERE PAIN LEVEL 7-10 Last administered on 04/19/17 14:14; Admin Dose 2 MG; Start 04/18/17 at 17:00 Docusate Sodium (Colace) 100 mg Q12H PRN PO CONSTIPATION; Start 04/18/17 at 17: 00 Zolpidem Tartrate 5 mg 5 mg QHS PRN PO SLEEP; Start 04/18/17 at 17:00 Ceftriaxone Sodium 50 ml @ 100 mls/hr Q24H IVPB Last administered on 04/18/17 21:17; Admin Dose 100 MLS/HR; Start 04/18/17 at 18:30 Sodium Chloride 1,000 ml @ 125 mls/hr Q8H IV Last administered on 04/19/17 04: 30; Admin Dose 125 MLS/HR; Start 04/18/17 at 20:30 Magnesium Sulfate (Magnesium Sulfate 4 Gm/100 ml) 100 ml @ 25 mls/hr ONCE ONCE IVPB Last administered on 04/19/17t 16:46; Admin Dose 25 MLS/HR; Start 04/19 at 17:00; Stop 04/19/17 at 20:59 TAO BOLTON MD Apr 19, 2017 18:57
[2017-04-19 19:13] LABS: IRON 12 ug/dl (35-150)
[2017-04-19 19:22] LABS: TOTAL IRON BINDING CAPACITY 164 ug/dl (241-421)
[2017-04-19] MEDS: CEFTRIAXONE 1 GM/50 ML (PMX) 50 ML IVPB SCH (20:12)
[2017-04-20] VITALS (11 sets, daily range): BP systolic 136–162; BP diastolic 64–83; PULSE 95–123; RESP 18–20
[2017-04-20] MEDS: HYDROCODONE/APAP (5/325) TAB PO PRN ×3 (02:30→14:33)
[2017-04-20] MEDS: SOD CHLORIDE 0.9% 1,000 ML IV SCH ×2 (04:38→12:30)
[2017-04-20 06:58] LABS: ADD SCAN DIFF NO
[2017-04-20 07:11] LABS: BASOPHIL # 0.1 10^3/ul (0.0-0.1); BASOPHILS % 0.6 % (0.0-2.0); EOSINOPHILS # 0.1 10^3/ul (0.0-0.5); EOSINOPHILS % 1.8 % (0.0-7.0); HEMATOCRIT 26.9 % (42.0-52.0); HEMOGLOBIN 8.5 g/dl (14.0-18.0); LYMPHOCYTES # 0.7 10^3/ul (0.8-2.9); MEAN CORPUSCULAR HEMOGLOBIN 29.5 pg (29.0-33.0); MEAN CORPUSCULAR HGB CONC 31.6 g/dl (32.0-37.0); MEAN CORPUSCULAR VOLUME 93.4 fl (82.0-101.0); MEAN PLATELET VOLUME 9.4 fl (7.4-10.4); MONOCYTE # 0.6 10^3/ul (0.3-0.9); MONOCYTES % 7.3 % (0.0-11.0); NEUTROPHIL # 6.5 10^3/ul (1.6-7.5); NEUTROPHILS % 80.8 % (39.0-77.0); PLATELET COUNT 358 10^3/UL (140-415); RED BLOOD COUNT 2.88 10^6/ul (4.70-6.10); RED CELL DISTRIBUTION WIDTH 14.6 % (11.5-14.5)
[2017-04-20 07:44] LABS: CALCIUM 7.9 mg/dl (8.4-10.2); CREATININE 0.77 mg/dl (0.61-1.24); POTASSIUM 3.9 mmol/L (3.5-5.1)
--- NOTE | 2017-04-20 11:23 | PDOCDIS ---
Discharge Instructions CONDITION Patient Condition: Good HOME CARE INSTRUCTIONS: Diet Instructions: Regular ACTIVITY: Activity Restrictions: No Restrictions FOLLOW UP/APPOINTMENTS Follow-up Plan F/U WITH YOUR PCP IN 1-2 WEEKS BANDAR RUTHERFORD Apr 20, 2017 11:23
--- NOTE | 2017-04-20 14:58 | DS ---
Date/Time of Note Date/Time of Note DATE: 04/20/17 TIME: 14:50 Discharge Summary Admission/Discharge Info Admit Date/Time Apr 18, 2017 at 12:21 Discharge Date/Time April 20, 2017 Discharge Diagnosis 1. Abdominal pain secondary to urinary retention from neurogenic bladder- improved with Cha catheter insertion Patient has history of implantable device in the testicle patient was not using the apparatus because he is unable to sit on toilet which is required to do in order to operate it Urology consultation appreciated, Cha catheter was inserted and then removed, patient is is to be provided with a bedside commode to allow him to urinate as it is difficult for him to sit on toilet 2. Left foot wound-stable 3. Acute kidney injury secondary to obstruction from neurogenic bladder- resolved status post Cha placement Nephrology consultation appreciated 4. History of polio with debility 5. Leukocytosis secondary to UTI from neurogenic bladder-resolved Status post Rocephin IV Urine culture shows Enterobacter 6. Normocytic anemia likely secondary to anemia of chronic disease Patient Condition: Good Hospital Course Patient is a 76-year-old male with a history of polio and debility as well as a history of neurogenic bladder status post sphincter placement. Patient had been unable to get to the toilet and operate his sphincter and developed a distended bladder with obstructive acute kidney injury. Patient's pain was secondary to the distended bladder patient did have a urinary tract infection secondary to urinary stasis with culture growing back Enterobacter. Patient did have leukocytosis on arrival was given antibiotics with resolution of the leukocytosis. Patient was seen by both urology and nephrology, urology ordered insertion of Cha catheter with resolution of the distended bladder and the patient's pain. Recognition was for bedside commode as patient was unable to get to the toilet hence open up the sphincter and hence arrangements were made for patient to receive a bedside commode when he returns home. On the day of discharge patient vitals, labs and physical exam stable. Patient had no acute complaints and his questions are answered Home Meds No Active Prescriptions or Reported Meds Primary Care Provider Reuben Gleason Time spent on discharge: > 30 minutes Pending Labs Laboratory Tests Test 04/20/17 06:13 White Blood Count 8.010^3/ul (4.8-10.8) Red Blood Count 2.8810^6/ul (4.70-6.10) Hemoglobin 8.5g/dl (14.0-18.0) Hematocrit 26.9% (42.0-52.0) Mean Corpuscular Volume 93.4fl (82.0-101.0) Mean Corpuscular Hemoglobin 29.5pg (29.0-33.0) Mean Corpuscular Hemoglobin Concent 31.6g/dl (32.0-37.0) Red Cell Distribution Width 14.6% (11.5-14.5) Platelet Count 83572^3/UL (140-415) Mean Platelet Volume 9.4fl (7.4-10.4) Neutrophils % 80.8% (39.0-77.0) Lymphocytes % 9.0% (15.0-51.0) Monocytes % 7.3% (0.0-11.0) Eosinophils % 1.8% (0.0-7.0) Basophils % 0.6% (0.0-2.0) Nucleated Red Blood Cells % 0.0/100WBC (0.0-0.0) Neutrophils # 6.510^3/ul (1.6-7.5) Lymphocytes # 0.710^3/ul (0.8-2.9) Monocytes # 0.610^3/ul (0.3-0.9) Eosinophils # 0.110^3/ul (0.0-0.5) Basophils # 0.110^3/ul (0.0-0.1) Nucleated Red Blood Cells # 0.010^3/ul (0.0-0.0) Sodium Level 141mmol/L (135-144) Potassium Level 3.9mmol/L (3.5-5.1) Chloride Level 102mmol/L (97-110) Carbon Dioxide Level 28mmol/L (21-31) Anion Gap 15 (8-16) Blood Urea Nitrogen 17mg/dl (7-20) Creatinine 0.77mg/dl (0.61-1.24) Glucose Level 128mg/dl (70-220) Calcium Level 7.9mg/dl (8.4-10.2) Magnesium Level 2.0mg/dl (1.7-2.5) BANDAR RUTHERFORD Apr 20, 2017 14:57
--- NOTE | 2017-04-20 17:12 | CONS ---
Date/Time of Note Date/Time of Note DATE: 04/20/17 TIME: 17:06 Assessment/Plan Assessment/Plan Chief Complaint/Hosp Course Impression: 1. Acute renal failure due to obstructive uropathy. His renal function is back to normal. He is doing well. 2. Hyperkalemia , this has corrected 3. Anemia , iron deficiency 4. History of polio 5. Leukocytosis , improved 6. UTI 7. HTN Plan: I will sign off at this point and will see again on request. Problems: Consultation Date/Type/Reason Admit Date/Time Apr 18, 2017 at 12:21 Initial Consult Date 04/18/17 Type of Consultation: Renal Referring Provider: BANDAR RUTHERFORD 24 HR Interval Summary Free Text/Dictation This patient is doing better. He is awake and alert. Constitutional: improved, no complaints Exam/Review of Systems Vital Signs Vitals Vital Signs Date Time Temp Pulse Resp B/P Pulse Ox O2 Delivery O2 Flow Rate FiO2 04/20/17 15:38 98.6 107 20 162/80 97 04/19/17 20:00 Nasal Cannula 1.0 Intake and Output 04/19/17 04/19/17 04/20/17 15:00 23:00 07:00 Intake Total 890 ml 1912 ml Output Total 450 ml 2400 ml Balance 440 ml -488 ml Exam Constitutional: alert, oriented Respiratory: clear to auscultation, normal air movement Cardiovascular: regular rate and rhythm Gastrointestinal: soft Musculoskeletal: muscle weakness Results Result Diagram: 04/20/17 0613 04/20/17 0613 Results 24 hrs Laboratory Tests Test 04/20/17 06:13 White Blood Count 8.0 Red Blood Count 2.88 L Hemoglobin 8.5 L Hematocrit 26.9 L Mean Corpuscular Volume 93.4 Mean Corpuscular Hemoglobin 29.5 Mean Corpuscular Hemoglobin Concent 31.6 L Red Cell Distribution Width 14.6 H Platelet Count 358 Mean Platelet Volume 9.4 Neutrophils % 80.8 H Lymphocytes % 9.0 L Monocytes % 7.3 Eosinophils % 1.8 Basophils % 0.6 Nucleated Red Blood Cells % 0.0 Neutrophils # 6.5 Lymphocytes # 0.7 L Monocytes # 0.6 Eosinophils # 0.1 Basophils # 0.1 Nucleated Red Blood Cells # 0.0 Sodium Level 141 Potassium Level 3.9 Chloride Level 102 Carbon Dioxide Level 28 Anion Gap 15 Blood Urea Nitrogen 17 # Creatinine 0.77 Glucose Level 128 Calcium Level 7.9 L Magnesium Level 2.0 Medications Medications Current Medications Miscellaneous Information (Pending Santyl Order For Wound Care) This patient caro... PRN PRN XX WOUND CARE; Start 04/18/17 at 16:00 Ondansetron HCl (Zofran Inj) 4 mg Q6H PRN IV NAUSEA AND/OR VOMITING; Start 04/18 at 17:00 Acetaminophen (Tylenol Tab) 650 mg Q6H PRN PO PAIN LEVEL 1-3 OR FEVER Last administered on 04/19/17 21:39; Admin Dose 650 MG; Start 04/18/17 at 17:00 Acetaminophen/ Hydrocodone Bitart ([place] (5/325)) 1 tab Q6H PRN PO MODERATE PAIN LEVEL 4-6 Last administered on 04/20/17 14:33; Admin Dose 1 TAB; Start 04/18 at 17:00 Morphine Sulfate (morphine) 2 mg Q4H PRN IV SEVERE PAIN LEVEL 7-10 Last administered on 04/19/17 14:14; Admin Dose 2 MG; Start 04/18/17 at 17:00 Docusate Sodium (Colace) 100 mg Q12H PRN PO CONSTIPATION; Start 04/18/17 at 17: 00 Zolpidem Tartrate 5 mg 5 mg QHS PRN PO SLEEP; Start 04/18/17 at 17:00 Ceftriaxone Sodium 50 ml @ 100 mls/hr Q24H IVPB Last administered on 04/19/17 20:12; Admin Dose 100 MLS/HR; Start 04/18/17 at 18:30 Sodium Chloride (NS) 1,000 ml @ 125 mls/hr Q8H IV Last administered on 04:38; Admin Dose 125 MLS/HR; Start 04/18/17 at 20:30 Clonidine (Catapres) 0.1 mg Q6H PRN PO ELEVATED BLOOD PRESSURE; Start 04/19/17 at 19:00 TAO BOLTON MD Apr 20, 2017 17:12
--- NOTE | 2017-04-20 18:27 | PN ---
Date/Time of Note Date/Time of Note DATE: 04/20/17 TIME: 18:16 Assessment/Plan VTE Prophylaxis VTE Prophylaxis Intervention: LMWH Lines/Catheters IV Catheter Type ([facility] Peripheral IV Urinary Cath still in place: Yes Reason Cath still needed: urinary retention, other (indicate) (Cha catheter was removed now and the patient should use the artificial sphincter pump and try to deflate the cuff every 4 hours and try to urinate I have talked to his and told her to remind him that he should urinate and try to urinate every 4 hours otherwise the urine will stay inside his bladder and will back up to his kidneys) Assessment/Plan Chief Complaint/Hosp Course The renal function has improved his creatinine is back down to normal . the Cha catheter that he had was removed , his urinary retention was due to the fact that he was not attempting to deflate the cuff and urinate and therefore he had urinary retention and hydronephrosis . I have talked to him again and also to his , stressed the fact that he needs to press on the pump every 4 hours , then within a few minutes he should be urinating to avoid having retention again and having hydronephrosis and renal failure . Problems: Assessment/Plan The renal function has improved his creatinine is back down to normal . the Cha catheter that he had was removed , his urinary retention was due to the fact that he was not attempting to deflate the cuff and urinate and therefore he had urinary retention and hydronephrosis . I have talked to him again and also to his , stressed the fact that he needs to press on the pump every 4 hours , then within a few minutes he should be urinating to avoid having retention again and having hydronephrosis and renal failure . Cont'd Hospitalization Reason: From a urological standpoint he is okay to be discharged Subjective 24 Hr Interval Summary Free Text/Dictation Patient is feeling better and is anxious to go home. he still had the Cha catheter and he states that he is able to operate the artificial sphincter that he has Constitutional: no complaints Eyes: no complaints ENT: no complaints Respiratory: no complaints Cardiovascular: no complaints Gastrointestinal: other (Patient has multiple bowel movement and he does not have control of his bowel movements), passing stool Genitourinary: other (No hematuria, has of an indwelling Cha catheter) Musculoskeletal: no complaints, other (Difficulty ambulating) Skin: other (His skin cellulitis is stable) Neurologic: no complaints Endocrine: no complaints Lymphatic: no complaints Exam/Review of Systems Vital Signs Vitals Vital Signs Date Time Temp Pulse Resp B/P Pulse Ox O2 Delivery O2 Flow Rate FiO2 04/20/17 15:38 98.6 107 20 162/80 97 04/19/17 20:00 Nasal Cannula 1.0 Intake and Output 04/19/17 04/19/17 04/20/17 15:00 23:00 07:00 Intake Total 890 ml 1912 ml Output Total 450 ml 2400 ml Balance 440 ml -488 ml Exam Constitutional: alert, oriented Psych: no complaints Head: normocephalic Eyes: nl conjunctiva ENMT: nl external ears & nose Neck: supple Respiratory: normal air movement Gastrointestinal: soft Genitourinary - Male: other (Cha catheter that he had was draining clear urine I did press on the pump of the artificial sphincter to make sure that the cuff is deflated and then I deflated the balloon of the Cha catheter and remove the Cha that he had. I then reactivated the pump) Extremities: edema, No calf tenderness, No clubbing, No cyanosis, No normal pulses, No other, No palpable cord, No pitting pedal edema, No tenderness Results Result Diagram: 04/20/1761204/20/1713 Results 24 hrs Laboratory Tests Test 04/20/17 06:13 White Blood Count 8.0 Red Blood Count 2.88 L Hemoglobin 8.5 L Hematocrit 26.9 L Mean Corpuscular Volume 93.4 Mean Corpuscular Hemoglobin 29.5 Mean Corpuscular Hemoglobin Concent 31.6 L Red Cell Distribution Width 14.6 H Platelet Count 358 Mean Platelet Volume 9.4 Neutrophils % 80.8 H Lymphocytes % 9.0 L Monocytes % 7.3 Eosinophils % 1.8 Basophils % 0.6 Nucleated Red Blood Cells % 0.0 Neutrophils # 6.5 Lymphocytes # 0.7 L Monocytes # 0.6 Eosinophils # 0.1 Basophils # 0.1 Nucleated Red Blood Cells # 0.0 Sodium Level 141 Potassium Level 3.9 Chloride Level 102 Carbon Dioxide Level 28 Anion Gap 15 Blood Urea Nitrogen 17 # Creatinine 0.77 Glucose Level 128 Calcium Level 7.9 L Magnesium Level 2.0 Medications Medications Current Medications Miscellaneous Information (Pending Santyl Order For Wound Care) This patient caro... PRN PRN XX WOUND CARE; Start 04/18/17 at 16:00 Ondansetron HCl (Zofran Inj) 4 mg Q6H PRN IV NAUSEA AND/OR VOMITING; Start 04/18 at 17:00 Acetaminophen (Tylenol Tab) 650 mg Q6H PRN PO PAIN LEVEL 1-3 OR FEVER Last administered on 04/19/17 21:39; Admin Dose 650 MG; Start 04/18/17 at 17:00 Acetaminophen/ Hydrocodone Bitart ([place] (5/325)) 1 tab Q6H PRN PO MODERATE PAIN LEVEL 4-6 Last administered on 04/20/17 14:33; Admin Dose 1 TAB; Start 04/18 at 17:00 Morphine Sulfate (morphine) 2 mg Q4H PRN IV SEVERE PAIN LEVEL 7-10 Last administered on 04/19/17 14:14; Admin Dose 2 MG; Start 04/18/17 at 17:00 Docusate Sodium (Colace) 100 mg Q12H PRN PO CONSTIPATION; Start 04/18/17 at 17: 00 Zolpidem Tartrate 5 mg 5 mg QHS PRN PO SLEEP; Start 04/18/17 at 17:00 Ceftriaxone Sodium 50 ml @ 100 mls/hr Q24H IVPB Last administered on 04/19/17 20:12; Admin Dose 100 MLS/HR; Start 04/18/17 at 18:30 Sodium Chloride (NS) 1,000 ml @ 125 mls/hr Q8H IV Last administered on 04:38; Admin Dose 125 MLS/HR; Start 04/18/17 at 20:30 Clonidine (Catapres) 0.1 mg Q6H PRN PO ELEVATED BLOOD PRESSURE; Start 04/19/17 at 19:00 FADI ALCALA MD Apr 20, 2017 18:26
[2017-04-20] MEDS: CEFTRIAXONE 1 GM/50 ML (PMX) 50 ML IVPB SCH (18:30)
== END 2017-04-20 22:05 | disposition home health service (06) | DRG 694 ==
LOC: E/R 10:16 → MS4 12:21
PROVIDERS: ADMIT Hospitalist; ATTEND Hospitalist
DX: N13.8 Other obstructive and reflux uropathy (principal); N17.9 Acute kidney failure, unspecified; Q60.0 Renal agenesis, unilateral; N39.0 Urinary tract infection, site not specified; L03.119 Cellulitis of unspecified part of limb; F17.210 Nicotine dependence, cigarettes, uncomplicated; N31.9 Neuromuscular dysfunction of bladder, unspecified; R33.8 Other retention of urine; D63.1 Anemia in chronic kidney disease; R53.81 Other malaise; B91 Sequelae of poliomyelitis; Z86.711 Personal history of pulmonary embolism; Z79.01 Long term (current) use of anticoagulants; E87.5 Hyperkalemia; B96.89 Other specified bacterial agents as the cause of diseases classified elsewhere
CPT/HCPCS: 36415; 71010; 74176; 80048; 81001; 82550; 82553; 82728; 83036; 83540; 83605; 83735; 84100; 84484; 85025; 85610; 85730; 86850; 86900; 86901; 87040; 87070; 87081; 87086; 93005; 96374; 97110; 97162; 97530; J0696; J2270; J2543; J7030